=== PATIENT | female | born 1980 | race American Indian/Alaskan Native ===

== ENCOUNTER 2024-09-15 20:25 | Emergency (ER) | payer OTHER, SELFPAY ==
[2024-09-15 20:32] VITALS: BP 159/119; PULSE 123; RESP 23; TEMP 37; O2SAT 98; BMI 44.6
--- NOTE | 2024-09-15 20:44 | PC.NURSE ---
[facility] in to see ptInez
--- NOTE | 2024-09-15 20:45 | XR_ITS ---
Examination: Transvaginal ultrasound of the pelvis, complete Technique: Transvaginal sonographic images pelvis performed using stanley scale imaging Exam date and time: September 15, 2024 2136 hrs. Indications: Onset vaginal bleeding today Findings: Uterus 7.6 x 3.4 x 3.9 cm Calcification in the endometrium No uterine mass or intrauterine gestation Right ovary 3.4 cm arterial flow 24 x 23 mm cyst Left ovary 2.2 cm arterial flow 16 mm follicular cyst Impression: No discrete uterine mass Bilateral simple ovarian cysts.
--- NOTE | 2024-09-15 20:47 | PD.EDVAGBL ---
ED OB Contraction Preg RMI/HPI General Chief complaint: Vaginal Bleeding Stated complaint: VAGINAL BLEEDING Time Seen by Provider: 09/15/24 20:37 Arrival date/time: 09/15/24 20:25 RME / HPI RME / HPI Narrative: 44-year-old female patient came in for evaluation regarding heavy vaginal bleeding. Patient bleeding started about 4 hours ago, severity moderate.. Also complained of pelvic pain, described as like having a labor. Patient had an ablation done 4 weeks ago. Denies any vomiting denies any fever denies any other complaints. Related Data Home Medications ?Medication ?Instructions ?Recorded ?Confirmed lisinopril 5 mg tablet 5 mg PO QDAY #0 tabs 04/26/16 10/28/18 Previous Rx's ?Medication ?Instructions ?Recorded cephalexin 500 mg capsule 500 mg PO TID #21 caps 10/28/18 neomycin-bacitracn Zn-polymyxn 3.5 1 applicatio topical BID #144 ea 10/28/18 mg-400 unit-5,000 unit top oint pkt (Neosporin([id number]-[id number])) tizanidine 4 mg tablet 4 mg PO Q8H PRN muscle spasticity 10/28/18 #10 tabs amoxicillin 875 mg-potassium 1 tab PO Q12H #14 tabs 10/26/23 clavulanate 125 mg tablet ibuprofen 600 mg tablet 600 mg PO Q8H PRN pain #14 tabs 10/26/23 ondansetron 4 mg disintegrating 4 mg PO Q8H PRN nausea and 10/26/23 tablet vomiting #10 tabs acetaminophen 300 mg-codeine 30 mg 1 tab PO Q6H PRN pain #20 tabs 09/15/24 tablet acetaminophen 300 mg-codeine 30 mg 1 tab PO Q8H PRN pain #20 tabs 09/15/24 tablet cefuroxime axetil 500 mg tablet 500 mg PO BID #14 tabs 09/15/24 Allergies Allergy/AdvReac Type Severity Reaction Status Date / Time No Known Allergies Allergy Verified 10/26/23 14:59 Review of Systems Review of Systems Narrative Review of Systems: Review of system reviewed and within normal limits except mentioned in HPI ED Exam Narrative Physical exam: VITAL SIGNS: Reviewed. GENERAL APPEARANCE: Alert and interactive, follows commands, no acute distress, HEAD AND FACE: Non-traumatic. ENT: PERRL, pink conjunctivitis, eyelid no trauma, Mucous membrane moist. NECK: Supple, nontender, no nuchal rigidity. CHEST: No tenderness, no crepitus, no paradoxical movement, no retractions. LUNGS: Clear, well ventilated, symmetric, no rales, no wheezing, no ronchi, no stridor, good breath sounds bilaterally. HEART: Regular rate, regular rhythm, no murmur, no gallops. ABDOMEN: Soft, positive bowel sounds, nondistended, no guarding, nontender, no rebound, no masses, RECTAL: Deferred. GENITAL: Deferred. NEUROLOGICAL: Gross motor function intact sensory function intact, Appropriate for age. MUSCULOSKELETAL: low back nontender, full range of motion. EXTREMITIES: Nontender, full range of motion. SKIN: Color pink, dry, no rash, no lacerations, no abrasions, no contusions. LYMPHATICS: Deferred. Course Quality Measures none Orders Category Date Time Status IV [Insert IV] NOW Care 09/15/24 21:11 Active US transvaginal Stat Exams 09/15/24 20:45 Completed CBC [CBC] Stat Lab 09/15/24 21:18 Completed CMP [Comprehensive Metabolic Panel] Stat Lab 09/15/24 21:18 Completed HCG,Qualitative Serum Stat Lab 09/15/24 21:18 Completed PT [Prothrombin Time with INR] Stat Lab 09/15/24 21:18 Completed PTT [Partial Thromboplastin Time] Stat Lab 09/15/24 21:18 Completed UA, C/S IF [Urinalysis, C/S if Indicated] Stat Lab 09/15/24 22:50 Completed Urine Culture Stat Lab 09/15/24 22:50 Received Lisinopril [Prinivil] Med 09/15/24 22:06 Discontinued 20 mg PO X1 ONE Morphine Inj Med 09/15/24 20:45 Discontinued 4 mg IVP X1 ONE Morphine Inj Med 09/15/24 23:23 Discontinued 4 mg IVP X1 ONE Ondansetron Inj [Zofran Inj] Med 09/15/24 20:45 Discontinued 4 mg IV X1 ONE Tranexamic Acid Inj Med 09/15/24 20:49 Discontinued 1,000 mg IV X1 ONE cefTRIAXone [Rocephin] 1,000 mg Med 09/15/24 23:37 Active Sodium Chloride 0.9% (P) [Ns 0.9% (P)] 50 ml IV X1 cefTRIAXone [Rocephin] 1,000 mg Med 09/15/24 23:32 Active Sodium Chloride 0.9% (Partial) [NS (Partial)] 50 ml IV X1 cefTRIAXone/D5w 1gm IV premix [Rocephin/D5w 1gm IV Med 09/15/24 23:24 Active premix] 50 ml IV X1 Vital Signs Vital signs: Vital Signs Temperature 98.6 F 09/15/24 20:32 Pulse Rate 123 H 09/15/24 20:32 Respiratory Rate 23 H 09/15/24 20:32 Blood Pressure 159/119 H 09/15/24 20:32 Pulse Oximetry (%) 98 09/15/24 20:32 Vaginal Bleeding [facility] Narrative [facility] Narrative: 44-year-old female patient came in for evaluation regarding heavy vaginal bleeding. Patient bleeding started about 4 hours ago, severity moderate.. Also complained of pelvic pain, described as like having a labor. Patient had an ablation done 4 weeks ago. Denies any vomiting denies any fever denies any other complaints. Patient's CBC came back with 25,000 RBC count. Otherwise unremarkable. No anemia noted. Laboratory workup significant for UTI. Ultrasound of the pelvis showed No discrete uterine mass Bilateral simple ovarian cysts. Patient received IV ceftriaxone, morphine and Zofran Patient's bowel is significant for many pain after morphine. Was advised to follow-up closely with [facility] who did the ablation in 1 to 2 days. Patient agrees with the plan. Patient data External records reviewed:: None Clinical information provided by:: patient Social determinants that could affect healthcare access:: none Patient has the following chronic illnesses:: None How is presenting disease/condition affected by chronic disease/condition?: no chronic disease Evaluation data The following diagnostics were reviewed and interpreted by me:: lab results and radiology exam(s) Lab and/or radiology exams considered but not ordered:: None Interpretation Summary: See results in [facility] Medications / Prescriptions Medications or Prescriptions considered but not ordered:: None Medication administrations:: Medication Administration History Ceftriaxone Sodium/Dextrose (Rocephin/D5w 1gm Iv Premix) 50 mls @ 100 mls/hr IV X1 ONE Stop: 09/15/24 23:53 Last Admin: 09/15/24 23:33 Dose: Not Given Documented By: BRIAN Non-Admin Reason: Other, see note Ceftriaxone Sodium 1,000 mg/ (Sodium Chloride) 50 mls @ 100 mls/hr IV X1 ONE Stop: 09/16/24 00:01 Last Admin: 09/15/24 23:37 Dose: Not Given Documented By: BRIAN Non-Admin Reason: Cancelled by Provider Ceftriaxone Sodium 1,000 mg/ (Sodium Chloride) 50 mls @ 100 mls/hr IV X1 ONE Stop: 09/16/24 00:06 Discontinued Medications Lisinopril (Lisinopril 20 Mg Tablet) 20 mg PO X1 ONE Stop: 09/15/24 22:07 Last Admin: 09/15/24 22:12 Dose: 20 mg Documented By: OKKI Morphine Sulfate (Morphine Sulf Inj 10 Mg/Ml Vial) 4 mg IVP X1 ONE Stop: 09/15/24 20:46 Last Admin: 09/15/24 21:21 Dose: 4 mg Documented By: KOKI Morphine Sulfate (Morphine Sulf Inj 10 Mg/Ml Vial) 4 mg IVP X1 ONE Stop: 09/15/24 23:24 Last Admin: 09/15/24 23:31 Dose: 4 mg Documented By: KOKI Comments: Ondansetron HCl (Ondansetron Inj 2 Mg/Ml Inj 2 Ml) 4 mg IV X1 ONE; Protocol Stop: 09/15/24 20:46 Last Admin: 09/15/24 21:19 Dose: 4 mg Documented By: KOKI Tranexamic Acid (Tranexamic Acid Inj 1,000 Mg/10 Ml Vial) 1,000 mg IV X1 ONE Stop: 09/15/24 20:50 Last Admin: 09/15/24 21:23 Dose: 1,000 mg Documented By: KOKI Patient received tranexamic acid IV, Zofran, morphine and ceftriaxone IV Consultations Consultation(s) initiated? (list below): No Diagnosis Vaginal Bleeding Differential Diagnosis: vaginal bleeding and other (UTI, leukocytosis) Most likely diagnosis given after review of the tests above:: UTI, vaginal bleeding Admission Indicated Admission indicated?: indicated Explain why admission is indicated or not indicated:: None Admission Request Was there a request for admission?: No Disposition Plan Disposition Plan: Discharge Discharge Attestation Discharge Attestation: The patient and all family members were given an opportunity to ask questions and understood the discharge instructions. Discharge instructions specifically effects, indications for sooner follow up or return to the emergency department, and the expected course of current diagnosis. Patient condition: Stable Discharge Plan Plan Patient Disposition: HOME (Self Care) Disposition Comment: Stable Prescriptions/Referrals Prescriptions/Med Rec: New cefuroxime axetil 500 mg tablet 500 mg PO BID Qty: 14 0RF acetaminophen-codeine 300-30 mg tablet 1 tab PO Q6H PRN (Reason: pain) Qty: 20 0RF acetaminophen-codeine 300-30 mg tablet 1 tab PO Q8H PRN (Reason: pain) Qty: 20 0RF No Action lisinopril 5 MG tablet 5 mg PO QDAY Qty: 0 Neosporin (pux-zxc-pktqj) 3.5-400-5,000 jm-jmzu-ferg ointment in packet 1 applicatio TOPICAL BID Qty: 144 0RF tizanidine 4 mg tablet 4 mg PO Q8H PRN (Reason: muscle spasticity) Qty: 10 0RF cephalexin 500 mg capsule 500 mg PO TID Qty: 21 0RF ibuprofen 600 mg tablet 600 mg PO Q8H PRN (Reason: pain) Qty: 14 0RF amoxicillin-pot clavulanate 875-125 mg tablet 1 tab PO Q12H Qty: 14 0RF ondansetron 4 mg tablet,disintegrating 4 mg PO Q8H PRN (Reason: nausea and vomiting) Qty: 10 0RF Problem List Clinical Impression: Vaginal bleeding, UTI (urinary tract infection) Patient/Caregiver Discharge Instructions Education Materials: Understanding Uterine Bleeding Additional Instructions: Thank you for the opportunity for serving you today. You are stable for discharged . You are advised to: Follow-up with your [facility] who did ablation in 1 to 2 days Return to ED for worsening of symptoms Increase oral fluids Take medication as prescribed Print Language: Nicaraguan Stand Alone Forms: [facility]ryn Award Info., Patient Portal Info Letter PA/NASIR Supervising Physician NOE/NASIR Supervising Physician: MD Vinita
[2024-09-15] MEDS: ONDANSETRON INJ 2 MG/ML INJ 2 ML 4 MG IV (21:19)
[2024-09-15] MEDS: MORPHINE SULF INJ 10 MG/ML VIAL 4 MG IVP ×2 (21:21→23:31)
[2024-09-15] MEDS: TRANEXAMIC ACID INJ 1,000 MG/10 ML VIAL 1000 MG IV (21:23)
--- NOTE | 2024-09-15 21:29 | PC.NURSE ---
to US via w/c
[2024-09-15 21:44] LABS: Basophils # (Auto) 0.1 Thou/mm3 (0.0-0.2); Basophils % (Auto) 0 % (0-2.5); Eosinophils % (Auto) 0 % (0-10); Hematocrit 37.2 % (36.0-46.0); Hemoglobin 12.4 g/dL (12.0-16.0); Immature Granulocytes % (Auto) 1 % (0-0); Immature Granulocytes Auto 0.21 Thou/mm3 (0.00-0.00); Lymphocytes # (Auto) 1.4 Thou/mm3 (1.0-4.8); Lymphocytes % (Auto) 5 % (10-50); Mean Corpuscular HGB Conc 33.3 g/dl (31.0-37.0); Mean Corpuscular Volume 84 fL (80-100); Monocytes # (Auto) 0.5 Thou/mm3 (0.0-0.8); Monocytes % (Auto) 2 % (0-12); Neutrophils # (Auto) 23.8 Thou/mm3 (1.8-7.7); Neutrophils % (Auto) 92 % (37-80); Nucleated Red Blood Cell % 0 /100 WBC (0); Platelet Count 387 Thou/mm3 (140-440); RDW Standard Deviation 42.2 fL (36.4-46.3); Red Blood Count 4.43 Miln/mm3 (4.00-5.20); White Blood Count 25.9 Thou/mm3 (3.6-11.0)
[2024-09-15 22:02] LABS: HCG,Qualitative Serum Negative
[2024-09-15 22:03] LABS: Albumin, Serum 4.3 gm/dL (3.5-5.0); Albumin/Globulin Ratio 1.4 (1.2-2.2); Alkaline Phosphatase 130 U/L (46-116); Anion Gap 8 (7-16); Aspartate Amino Transferase < 8 U/L (0-34); BUN/Creatinine Ratio 11 Ratio (12-20); Bilirubin,Total 0.3 mg/dL (0.3-1.2); Blood Urea Nitrogen 8 mg/dL (9-23); Calcium 9.6 mg/dL (8.3-10.6); Calcium (Corrected) 9.6 mg/dL (8.5-10.1); Carbon Dioxide 24.7 mMol/L (20.0-31.0); Chloride 105 mMol/L (98-107); Creatinine (Component) 0.7 mg/dL (0.6-1.3); Estimated Creatinine Clearance 145.1 mL/min (>60); Globulin 3.1 gm/dL (2.3-3.5); Glucose 239 mg/dL (74-106); Osmolality,Calculated 281 (275-295); Potassium 3.7 mMol/L (3.4-5.1); Sodium 138 mMol/L (136-145); Total Protein 7.4 gm/dL (5.7-8.2); eGFR > 60 See Note
[2024-09-15 22:06] LABS: Partial Thromboplastin Time 27.8 Seconds (22.0-36.0); Prothrombin Time 10.7 Seconds (9.0-12.2)
[2024-09-15 22:07] VITALS: BP 194/109; PULSE 106; RESP 20; O2SAT 96
[2024-09-15 22:12] VITALS: BP 194/109; PULSE 106
[2024-09-15] MEDS: Lisinopril 20 MG TABLET PO (22:12)
[2024-09-15 22:14] LABS: Alanine Aminotransferase 9 U/L (10-49)
[2024-09-15 23:00] LABS: Collection Type, Urine Clean Catch
[2024-09-15 23:12] LABS: Bilirubin,Urine Negative (Negative); Blood,Urine 3+ (Negative); Color,Urine Dark-Brown (Lt Yel-Yel); Glucose, Urine Trace (Negative); Ketones,Urine 1+ (Negative); Leukocyte Esterase,Urine Positive (Negative); Nitrite,Urine Positive (Negative); Protein,Urine 2+ (Neg - Trace); RBC,Urine 11111 /hpf (0-3); Specific Gravity,Urine 1.027 (1.001-1.035); Squamous Epithelial Cell,Urine 4 /hpf (0-5); Urobilinogen,Urine Negative mg/dL (0.0-1.0); WBC,Urine 289 /hpf (0-5)
[2024-09-15 23:13] LABS: Clarity,Urine Turbid (Clear/Hazy); Culture Indicated,Urine Yes
[2024-09-15 23:19] VITALS: BP 170/107; PULSE 104; RESP 20; TEMP 36.6; O2SAT 96
--- NOTE | 2024-09-15 23:23 | PC.NURSE ---
Pt requesting more pain meds, Abrea FORENSIC NURSE in to re-eval pt. Pt informed with regards to plan of care. Pain meds, Abx and discharge home.
[2024-09-15] MEDS: cefTRIAXone 1,000 MG in SODIUM CHLORIDE 0.9% (P) 50 ML 100 MG IV (23:43)
[2024-09-16 00:04] VITALS: BP 167/102; PULSE 98; RESP 20; TEMP 36.9; O2SAT 98
== END 2024-09-16 00:20 | disposition home or self-care (01) ==
LOC: SERX 09-16 00:18
PROVIDERS: Nurse Practitioner Family; Emergency Provider Emergency Medicine; PCP Physician Assistant
DX: N93.9 Abnormal uterine and vaginal bleeding, unspecified (principal); N39.0 Urinary tract infection, site not specified; N83.292 Other ovarian cyst, left side; N83.291 Other ovarian cyst, right side; Z98.890 Other specified postprocedural states
CPT/HCPCS: 36415; 76830; 80053; 81001; 84703; 85025; 85610; 85730; 87077; 87086; 87186; 96365; 96375; 96376; 99284; J0696; J2270; J2405; J3490; J7050; A9270

== ENCOUNTER 2025-06-29 17:45 | Emergency (ER) | payer OTHER, SELFPAY ==
[2025-06-29 17:46] VITALS: BMI 41.3
[2025-06-29 17:55] VITALS: BP 174/121; BP 176/126; PULSE 73; RESP 18; TEMP 37.2; O2SAT 96
--- NOTE | 2025-06-29 18:00 | PD.EDADULT ---
ED General RME/HPI General Chief complaint: Abdominal Pain Stated complaint: UTI Time Seen by Provider: 06/29/25 17:48 Arrival date/time: 06/29/25 17:45 44-year-old female patient with significant history of hypertension, forgot to take her lisinopril this morning, came in for evaluation regarding dysuria frequency, severity moderate. Patient was diagnosed with UTI 5 days ago, and received a dose of ceftriaxone however was not prescribed p.o. antibiotic. Patient verbalized significant improvement of symptoms however today woke up with worsening of symptoms again. No fever no vomiting no other complaints noted in the triage patient's blood pressure was noted to be 174/121 denies any chest pain headache or neck pain. Related Data Home Medications ?Medication ?Instructions ?Recorded ?Confirmed lisinopril 5 mg tablet 5 mg PO QDAY #0 tabs 04/26/16 10/28/18 Previous Rx's ?Medication ?Instructions ?Recorded cephalexin 500 mg capsule 500 mg PO TID #21 caps 10/28/18 neomycin-bacitracn Zn-polymyxn 3.5 1 applicatio topical BID #144 ea 10/28/18 mg-400 unit-5,000 unit top oint pkt (Neosporin(rrw-amv-ajokw)) tizanidine 4 mg tablet 4 mg PO Q8H PRN muscle spasticity 10/28/18 #10 tabs amoxicillin 875 mg-potassium 1 tab PO Q12H #14 tabs 10/26/23 clavulanate 125 mg tablet ibuprofen 600 mg tablet 600 mg PO Q8H PRN pain #14 tabs 10/26/23 ondansetron 4 mg disintegrating 4 mg PO Q8H PRN nausea and 10/26/23 tablet vomiting #10 tabs acetaminophen 300 mg-codeine 30 mg 1 tab PO Q6H PRN pain #20 tabs 09/15/24 tablet acetaminophen 300 mg-codeine 30 mg 1 tab PO Q8H PRN pain #20 tabs 09/15/24 tablet cefuroxime axetil 500 mg tablet 500 mg PO BID #14 tabs 09/15/24 nystatin-triamcinolone 100,000 1 applic topical BID 10 days #60 06/29/25 unit/g-0.1 % topical cream grams Allergies Allergy/AdvReac Type Severity Reaction Status Date / Time No Known Allergies Allergy Verified 10/26/23 14:59 Review of Systems Review of Systems Narrative Review of Systems: Review of system reviewed and within normal limits except mentioned in HPI ED Exam Narrative Physical exam: VITAL SIGNS: Reviewed. GENERAL APPEARANCE: Alert and interactive, follows commands, no acute distress, HEAD AND FACE: Non-traumatic. ENT: PERRL, pink conjunctivitis, eyelid no trauma, Mucous membrane moist. NECK: Supple, nontender, no nuchal rigidity. CHEST: No tenderness, no crepitus, no paradoxical movement, no retractions. LUNGS: Clear, well ventilated, symmetric, no rales, no wheezing, no ronchi, no stridor, good breath sounds bilaterally. HEART: Regular rate, regular rhythm, no murmur, no gallops. ABDOMEN: Soft, positive bowel sounds, nondistended, no guarding, nontender, no rebound, no masses, RECTAL: Deferred. GENITAL: Deferred. NEUROLOGICAL: Gross motor function intact sensory function intact, Appropriate for age. MUSCULOSKELETAL: low back nontender, full range of motion. EXTREMITIES: Nontender, full range of motion. SKIN: Color pink, dry, no rash, no lacerations, no abrasions, no contusions. LYMPHATICS: Deferred. Course Quality Measures none Orders Category Date Time Status UA, C/S IF [Urinalysis, C/S if Indicated] Stat Lab 06/29/25 18:11 Completed Fluconazole [Diflucan] Med 06/29/25 18:56 Discontinued 150 mg PO X1 ONE Lisinopril [Prinivil] Med 06/29/25 17:59 Discontinued 10 mg PO X1 ONE Vital Signs Vital signs: Vital Signs Temperature 99.0 F 06/29/25 17:55 Pulse Rate 73 06/29/25 17:55 Respiratory Rate 18 06/29/25 17:55 Blood Pressure 176/126 H 06/29/25 17:55 Pulse Oximetry (%) 96 06/29/25 17:55 Oxygen Delivery Method Room Air 06/29/25 17:55 Discharge Plan Plan Patient Disposition: HOME (Self Care) Discharge Disposition comment: stable Prescriptions/Referrals Prescriptions/Med Rec: New nystatin-triamcinolone 100,000-0.1 unit/g-% cream 1 applic topical BID 10 Days Qty: 60 0RF No Action lisinopril 5 MG tablet 5 mg PO QDAY Qty: 0 Neosporin (obz-xof-rkoqo) 3.5-400-5,000 yc-jcsg-cikz ointment in packet 1 applicatio TOPICAL BID Qty: 144 0RF tizanidine 4 mg tablet 4 mg PO Q8H PRN (Reason: muscle spasticity) Qty: 10 0RF cephalexin 500 mg capsule 500 mg PO TID Qty: 21 0RF cefuroxime axetil 500 mg tablet 500 mg PO BID Qty: 14 0RF acetaminophen-codeine 300-30 mg tablet 1 tab PO Q6H PRN (Reason: pain) Qty: 20 0RF acetaminophen-codeine 300-30 mg tablet 1 tab PO Q8H PRN (Reason: pain) Qty: 20 0RF ibuprofen 600 mg tablet 600 mg PO Q8H PRN (Reason: pain) Qty: 14 0RF amoxicillin-pot clavulanate 875-125 mg tablet 1 tab PO Q12H Qty: 14 0RF ondansetron 4 mg tablet,disintegrating 4 mg PO Q8H PRN (Reason: nausea and vomiting) Qty: 10 0RF Referrals: Juliana Colon PA-C ([facility]) [Primary Care Provider] - In 1 week Problem List Clinical Impression: Candidiasis of vagina Patient/Caregiver Discharge Instructions Discharge Activity: activity as tolerated Education Materials: Candidiasis Vaginal Additional Instructions: Thank you for the opportunity for serving you today. You are stable for discharged . You are advised to: Follow-up with your PCP in 1 to 2 days Return to ED for worsening of symptoms Increase oral fluids Print Language: Austrian Stand Alone Forms: Eryn Award Info., Patient Portal Info Letter NOE/NASIR Supervising Physician NOE/NASIR Supervising Physician: MD Vinita MDM Narrative [facility] hospital course (for use when minimal MDM required): 44-year-old female patient with significant history of hypertension, forgot to take her lisinopril this morning, came in for evaluation regarding dysuria frequency, severity moderate. Patient was diagnosed with UTI 5 days ago, and received a dose of ceftriaxone however was not prescribed p.o. antibiotic. Patient verbalized significant improvement of symptoms however today woke up with worsening of symptoms again. No fever no vomiting no other complaints noted in the triage patient's blood pressure was noted to be 174/121 denies any chest pain headache or neck pain. Urinalysis negative for UTI. Patient does not want me to examine her vagina, my female nurse examined her vagina and described to me that patient is having redness and rashes on her perivaginal area no discharges no smell. Patient will be treated for vaginal candidiasis. Medication Administration(s) Medication Administration History Discontinued Medications Fluconazole (Fluconazole 150 Mg Tablet) 150 mg PO X1 ONE Stop: 06/29/25 18:57 Lisinopril (Lisinopril 20 Mg Tablet) 10 mg PO X1 ONE Stop: 06/29/25 18:00 Last Admin: 06/29/25 18:08 Dose: 10 mg Documented By: ANNIA Diagnosis Differential Diagnosis ED Complaint MDM: Dysuria, vaginal rash, vaginal candidiasis Diagnoses ruled out and/or further discussions: Vaginal candidiasis
[2025-06-29 18:08] VITALS: BP 176/126; PULSE 73
[2025-06-29 18:19] LABS: Collection Type, Urine Clean Catch
[2025-06-29 18:39] LABS: Bacteria,Urine Rare; Bilirubin,Urine Negative (Negative); Blood,Urine 3+ (Negative); Clarity,Urine Clear (Clear/Hazy); Color,Urine Lt-Yellow (Lt Yel-Yel); Culture Indicated,Urine Not Indicated; Glucose, Urine Negative (Negative); Ketones,Urine Negative (Negative); Leukocyte Esterase,Urine Negative (Negative); Nitrite,Urine Negative (Negative); PH,Urine 6.5 (5.0-7.0); Protein,Urine Negative (Neg - Trace); RBC,Urine 2 /hpf (0-3); Specific Gravity,Urine 1.013 (1.001-1.035); Squamous Epithelial Cell,Urine 1 /hpf (0-5); Urobilinogen,Urine Negative mg/dL (0.0-1.0); WBC,Urine 1 /hpf (0-5)
[2025-06-29 18:59] VITALS: BP 162/100
--- NOTE | 2025-06-29 19:02 | PC.NURSE ---
pt dropped pill had to waste and pull another
[2025-06-29] MEDS: FLUCONAZOLE 150 MG TABLET PO (19:03)
== END 2025-06-29 19:08 | disposition home or self-care (01) ==
PROVIDERS: Nurse Practitioner Family; Emergency Provider Emergency Medicine; PCP Nurse Practitioner Family
DX: B37.31 Acute candidiasis of vulva and vagina (principal)
CPT/HCPCS: 81001; 99282; A9270